=== PATIENT | male | born 2000 | race Caucasian/White ===

== ENCOUNTER → 2021-01-23 10:14 | Outpatient (BNVA) | payer BC, SELFPAY | PROVIDERS: Visit Provider Family Medicine Adult Medicine | DX: J30.9 Allergic rhinitis, unspecified (principal); B34.9 Viral infection, unspecified; E66.9 Obesity, unspecified; Z20.822 Contact with and (suspected) exposure to COVID-19 | CPT/HCPCS: 87635 ==